=== PATIENT | female | born 2000 | race Caucasian/White ===

== ENCOUNTER 2021-10-20 05:34 | Inpatient (IN) ==
[2021-10-20] MEDS ORDERED: diphenhydrAMINE 50 MG/1 ML VIAL IV PRN ×2 (05:45)
[2021-10-20] MEDS ORDERED: LACTATED RINGERS 500 ML IV PRN (05:45)
[2021-10-20] MEDS ORDERED: METHYLERGONOVINE 0.2 MG/1 ML AMP IM PRN (05:45)
[2021-10-20] MEDS ORDERED: TRANEXAMIC ACID 1,000 MG in SODIUM CHLORIDE 0.9% 100 ML IV PRN (05:45)
[2021-10-20] MEDS ORDERED: miSOPROStoL 200 MCG TABLET RECTAL PRN (05:45)
[2021-10-20] MEDS ORDERED: ePHEDrine 50 MG/ML VIAL IV PRN (05:45)
[2021-10-20] MEDS ORDERED: ONDANSETRON 4 MG/2 ML VIAL IV PRN ×2 (05:45→08:35)
[2021-10-20] MEDS ORDERED: CARBOPROST TROMETHAMINE 250 MCG/ML AMP IM PRN (05:45)
[2021-10-20] MEDS ORDERED: hydrOXYzine HCL 25 MG/1 ML VIAL IM PRN (05:45)
[2021-10-20 06:19] LABS: Basophils % 0.3 % (0.0-0.8); Eosinophils # 0.1 10*3/uL (0.0-0.87); Eosinophils % 0.8 % (0.00-10.9); Hematocrit 36.6 VOL% (35.7-47.0); Hemoglobin 12.9 GM/DL (12.0-16.0); Immature Granulocytes % 0.6 %; Immature Granulocytes Absolute 0.06 #; Lymphocytes % 19.4 % (21.3-54.2); Mean Corpuscular HGB Conc 35.2 GM/DL (32-36); Mean Corpuscular Volume 98.1 FL (87-102); Mean Platelet Volume 10.1 FL (9.6-12.0); Monocytes # 0.6 10*3/uL (0.11-0.8); Neutrophils % 72.9 % (38.7-73.9); Platelet Count 196 T/CUMM (130-400); Red Blood Count 3.73 MC/CUMM (3.8-5.5); Red Cell Distribution Width 13.2 % (9.3-17.3); White Blood Count 10.2 T/CUMM (4-12)
[2021-10-20] MEDS ORDERED: CITRIC ACID/SODIUM CITRATE 30 ML UDCUP PO ONE (06:30)
[2021-10-20] MEDS ORDERED: LACTATED RINGERS 1,000 ML IV ONE (06:30)
[2021-10-20] MEDS ORDERED: PROMETHAZINE 25 MG/1 ML VIAL IM ONE (06:30)
[2021-10-20] MEDS ORDERED: OXYTOCIN/LR 20 UNIT/1,000 ML BAG IV ONE ×2 (06:30→08:35)
[2021-10-20] MEDS ORDERED: LACTATED RINGERS 1,000 ML IV SCH ×2 (06:30→09:00)
[2021-10-20] MEDS ORDERED: ONDANSETRON 4 MG/2 ML VIAL IV ONE (06:30)
[2021-10-20] MEDS ORDERED: ceFAZolin 2,000 MG/50 ML DUPLEX IV ONE (06:30)
[2021-10-20] MEDS ORDERED: FAMOTIDINE 20 MG/2 ML VIAL IV ONE (06:30)
[2021-10-20 06:47] LABS: Alanine Aminotransferase 13 U/L (13-56); Alkaline Phosphatase 153 U/L (45-117); Aspartate Amino Transferase 17 U/L (0-37); Bilirubin,Total < 0.39 MG/DL (0.20-1.00); Blood Urea Nitrogen 7 MG/DL (7-18); Calcium 8.8 MG/DL (8.5-10.1); Carbon Dioxide 21 MMOL/L (21-32); Chloride 109 MMOL/L (98-107); Glucose 99 MG/DL (74-106); Osmolality,Calculated 270.8 MOS/KG (273-304); Sodium 137 MMOL/L (136-145); Total Protein 6.3 G/DL (6.4-8.2)
[2021-10-20] MEDS ORDERED: buprenorphine HCL 0.3 MG/ML VIAL ONE (07:17)
[2021-10-20] MEDS ORDERED: ONDANSETRON 4 MG/2 ML VIAL ONE (07:17)
[2021-10-20] MEDS ORDERED: PHENYLEPHRINE 1 MG/10 ML SYRINGE IV ONE (07:17)
[2021-10-20] MEDS ORDERED: BUPIVACAINE SPINAL 0.75% 2 ML AMP SPINAL ONE (07:17)
[2021-10-20] MEDS ORDERED: ACETAMINOPHEN INJ 1,000 MG/100 ML VIAL IV ONE (07:45)
[2021-10-20] MEDS ORDERED: KETOROLAC 30 MG/1 ML VIAL ONE (07:46)
[2021-10-20 08:14] LABS: Mucus,Urine Moderate /LPF (Occasional); RBC,Urine 1 /HPF (0-4); Squamous Epithelial Cell,Urine Occasional /HPF (0-10)
[2021-10-20 08:16] LABS: Bilirubin,Urine Negative (Negative); Blood, Urine Negative (Negative); Glucose,Urine (UA) Negative (Negative); Ketones,Urine Negative (Negative); Nitrite,Urine Negative (Negative); Protein,Urine Negative (Negative); Urine Appearance Clear (Clear); Urine Color Yellow (Yellow); Urine Specific Gravity 1.025 (1.001-1.035); Urine Urobilinogen 0.2 eU/dL (<2.0); Urine pH 6.5 (4.5-8.0)
[2021-10-20 08:20] LABS: Cord Arterial Blood HCO3 22.3 MMOL/L
[2021-10-20 08:22] LABS: Cord Venous Blood HCO3 22.4 MMOL/L; Cord Venous Blood PCO2 47.5 MMHG; Cord Venous Blood PO2 32.1
[2021-10-20] MEDS ORDERED: RHO(D) IMMUNE GLOBULIN 300 MCG SYRINGE IM ONE (08:35)
[2021-10-20] MEDS ORDERED: ACETAMINOPHEN 325 MG TABLET PO PRN (08:35)
[2021-10-20] MEDS ORDERED: MULTIVITAMIN (PRENATAL) TABLET PO SCH (09:00)
[2021-10-20] MEDS ORDERED: DOCUSATE SODIUM 100 MG CAPSULE PO SCH (09:00)
[2021-10-20] MEDS: KETOROLAC 30 MG/1 ML VIAL IV SCH ×2 (14:09→20:44)
[2021-10-20] MEDS: ACETAMINOPHEN 500 MG TABLET PO SCH ×2 (14:11→20:38)
[2021-10-20] MEDS: DOCUSATE SODIUM 100 MG CAPSULE PO SCH (22:04)
[2021-10-21] MEDS: ACETAMINOPHEN 500 MG TABLET PO SCH (02:08)
[2021-10-21] MEDS: KETOROLAC 30 MG/1 ML VIAL IV SCH (02:22)
[2021-10-21] MEDS: oxyCODONE/ACETAMINOPHEN 5-325 MG TABLET PO PRN ×2 (06:14→16:33)
[2021-10-21 06:29] LABS: Basophils % 0.4 % (0.0-0.8); Eosinophils # 0.1 10*3/uL (0.0-0.87); Hematocrit 32.9 VOL% (35.7-47.0); Hemoglobin 11.1 GM/DL (12.0-16.0); Immature Granulocytes % 0.5 %; Immature Granulocytes Absolute 0.04 #; Lymphocytes # 1.3 10*3/uL (1.4-4.0); Lymphocytes % 17.2 % (21.3-54.2); Mean Corpuscular HGB Conc 33.7 GM/DL (32-36); Mean Corpuscular Volume 102.2 FL (87-102); Mean Platelet Volume 9.8 FL (9.6-12.0); Monocytes # 0.6 10*3/uL (0.11-0.8); Monocytes % 7.7 % (1.7-12.7); Neutrophils % 73.2 % (38.7-73.9); Platelet Count 130 T/CUMM (130-400); Red Blood Count 3.22 MC/CUMM (3.8-5.5); Red Cell Distribution Width 13.4 % (9.3-17.3); White Blood Count 7.6 T/CUMM (4-12)
[2021-10-21] MEDS: MULTIVITAMIN (PRENATAL) TABLET PO SCH ×2 (07:56→17:33)
[2021-10-21] MEDS: MAGNESIUM HYDROXIDE SUSP 30 ML UDCUP PO PRN ×2 (07:57→20:39)
[2021-10-21] MEDS: DOCUSATE SODIUM 100 MG CAPSULE PO SCH ×2 (07:57→20:39)
[2021-10-21] MEDS: SIMETHICONE CHEW 80 MG TABLET PO PRN ×2 (07:57→20:39)
[2021-10-21] MEDS: IBUPROFEN 800 MG TABLET PO PRN (16:31)
[2021-10-21] MEDS ORDERED: BISACODYL 10 MG SUPP RECTAL PRN (20:34)
[2021-10-22] MEDS: IBUPROFEN 800 MG TABLET PO PRN (01:37)
[2021-10-22] MEDS: oxyCODONE/ACETAMINOPHEN 5-325 MG TABLET PO PRN (01:38)
[2021-10-22] MEDS: MAGNESIUM HYDROXIDE SUSP 30 ML UDCUP PO PRN (08:57)
[2021-10-22] MEDS: SIMETHICONE CHEW 80 MG TABLET PO PRN (08:57)
[2021-10-22] MEDS: MULTIVITAMIN (PRENATAL) TABLET PO SCH (08:57)
[2021-10-22] MEDS: DOCUSATE SODIUM 100 MG CAPSULE PO SCH (08:57)
[2021-10-22 10:24] VITALS: BP 114/58
[2021-10-22] MEDS ORDERED: MEASLES/MUMPS/RUBELLA VACCINE 0.5 ML VIAL SUBCUT ONE (12:09)
== END 2021-10-22 14:52 | disposition home or self-care (01) | DRG 540 ==
LOC: N.LDOUT 05:34 → N.LD 05:36 → N.OB 11:17
PROVIDERS: ADMIT Obstetrics & Gynecology; ATTEND Obstetrics & Gynecology
PROC: LDCSECT (ICD-10-PCS; 2021-10-20 07:20)